=== PATIENT | female | born 1995 | race African-American/Black ===

== ENCOUNTER 2022-12-02 15:45 | Emergency (ER) | payer OTHER ==
[~2022-12-02] VITALS: Ht 167.6 cm; Wt 105.0 kg
[2022-12-02 15:59] VITALS: O2SAT 98
[2022-12-02] MEDS ORDERED: DEXAMETHASONE 2MG TABLET PO ONE (16:30)
[2022-12-02] MEDS ORDERED: KETOROLAC 30MG/ML VIAL IM ONE (16:30)
[2022-12-02] MEDS ORDERED: OFLO5DRO4 EACH EAR (16:31)
[2022-12-02] MEDS ORDERED: NAPR275T96 MT (16:31)
[2022-12-02] MEDS ORDERED: KETOROLAC 30MG/ML VIAL IM NR (16:45)
[2022-12-02] MEDS ORDERED: DEXAMETHASONE 4MG TABLET PO NR (16:45)
[2022-12-02 17:18] VITALS: BP 143/78; PULSE 78; RESP 14; TEMP 97.5
== END 2022-12-02 17:42 | disposition home or self-care (01) ==
LOC: ER 15:45
DX: H60.93 Unspecified otitis externa, bilateral (principal)
CPT/HCPCS: 99283; 81025; 96372; J8540; J1885